=== PATIENT | female | born 1995 | race Caucasian/White ===

== ENCOUNTER 2022-02-08 01:01 | Inpatient (IN) | payer BC, SELFPAY ==
[2022-02-08] VITALS (19 sets, daily range): BP systolic 114–164; BP diastolic 66–103; PULSE 74–101; RESP 15–20; TEMP 36.3–37.2; O2SAT 97–98
[2022-02-08 02:15] LABS: SARS PCR* Negative SARS-CoV-2 (Negative)
--- NOTE | 2022-02-08 05:53 | PM.OBHPLI ---
OB - H&P: HPI Labor/Induction History of Present Illness Date Seen: 02/08/22 Chief Complaint: The patient is a 26 year old 1 para 0 at 37 4/7 weeks gestation by 1st trimester US, who presents with PROM at home. She had clear liquid leak suddenly about an hour prior to admission. Contractions started shortly thereafter. Chief complaint: Maternity : 1 Para: 0 Date of last menstrual period: 05/21/21 Estimated date of delivery: 02/25/22 Gestational age based on last menstrual period: 37 History of Present Dating criteria: based on LMP care: good care Ultrasounds: normal 1st trimester US and normal mid trimester US Medical complications: none Labs Blood type: AB (+) positive Rubella: immune RPR/VDLR: nonreactive GBS status: negative HBsAG: negative Review of Systems Status of ROS: Reports: unobtainable due to medical condition Meds Home Medications and Allergies Home Medications Medication Instructions Recorded Confirmed Type docosahexaenoic acid 200 mg See Rx Instructions PO .once daily 02/08/22 02/08/22 History capsule ( DHA) ferrous sulfate 325 mg (65 mg 325 mg PO .once daily 02/08/22 02/08/22 History iron) tablet,delayed release Allergies Allergy/AdvReac Type Severity Reaction Status Date / Time No Known Drug Allergies Allergy Verified 02/08/22 01:12 OB - H&P: Exam Physical Exam: Vital signs: Temp Resp 98.0 F 16 02/08/22 03:01 02/08/22 03:01 Constitutional: Constitutional: no acute distress Routine Abdominal Exam: Comments: Gravid uterus. Baby cephalic by [place]. Approx [id number] EFW. Detailed Labor and Delivery Exam: Patient Gravid: yes Dilation (cm): 10 Effacement (%): 100 Tachysystole: No Contraction intensity: Moderate Fetus (Single): Station: +2 Amniotic Membrane Status: SROM Amniotic Membrane Fluid Description: Clear OB - Problem Based A/P Additional Plan (1) PROM (premature rupture of membranes): Status: Acute Plan Cervix is complete when I get to the hospital. Ready to start pushing. Patient requests minimal intervention including intermittent auscultation. Will manage per protocol. Delivery/Labor/Induction Plan Plan: expectant management
[2022-02-08] MEDS: OXYTOCIN 10 UNIT/ML INJ IM (06:57)
[2022-02-08] MEDS: LIDOCAINE 1 % PF 30 ML INJECTION (06:57)
--- NOTE | 2022-02-08 07:29 | P.OBPRC_ITS ---
Procedure Delivery date: 02/08/22 Procedure Done: only Events: Premature Rupture of Membrane Intrapartal Events: None Delivery monitor: external FHT (intermittent) Route of delivery: Episiotomy description: None Laceration description: Perineal - 2nd Degree Delivery repair: Vicryl Estimated blood loss (mL): 300 Anesthesia type: None Disposition: floor [place] Infant Infant Gender: Male presentation: vertex Placental Delivery Description: Spontaneous Cord Description: 3 Vessels and Nuchal Cord cord description comment: Nuchal x1 OB Vag Delivery Procedures Additional Procedures Laceration Repair: Yes Procedure Details: Mom progressed spontaneously to complete desiring minimal intervention. She was found to be compete at 0523 and started pushing immediately. She made good, slow progress with pushing. Intermittent heart tones in the 110s-130s. No decels noted. She delivered a liveborn male via the OA position with a 1x nuchal cord at 0634. Baby was brought to warmer after 1 minute because of minimal respiratory effort and poor tone. Mom had moderate bleeding initially and uterine atony so she was given a dose of IM pitocin. Bleeding slowed significantly. She was found to have a 2nd degree midline tear that was repaired with 3-0 Vicryl. Rectal exam after repair was normal. Bleeding was noted to be minimal from the uterus after repair. Mom and infant set up for routine cares. Mom does plan to breastfeed.
[2022-02-08] MEDS: ACETAMINOPHEN 500 MG TABLET 1000 MG PO ×3 (07:37→21:57)
[2022-02-08] MEDS: IBUPROFEN 600 MG TABLET PO ×2 (12:15→19:19)
[2022-02-09 00:30] VITALS: BP 115/77; PULSE 74; RESP 15; TEMP 36.6
[2022-02-09] MEDS: IBUPROFEN 600 MG TABLET PO ×3 (01:19→13:49)
[2022-02-09] MEDS: ACETAMINOPHEN 500 MG TABLET 1000 MG PO ×2 (04:24→10:28)
[2022-02-09 04:27] VITALS: BP 107/76; PULSE 74; RESP 16; TEMP 36.7
--- NOTE | 2022-02-09 08:26 | PM.OBPNVD1 ---
OB - PN:Subj Subjective Date Seen: 02/09/22 Patient comments OB post-: no complaints and pain well controlled infant status: and doing well OB - PN: Obj Exam Physical Exam: Vital signs: Temp Pulse Resp BP Pulse Ox 98.0 F 74 16 107/76 98 02/09/22 04:27 02/09/22 04:27 02/09/22 04:27 02/09/22 04:02/08/22 19:59 Constitutional: Constitutional: no acute distress Routine Respiratory Exam: Respiratory: Present CTA bilaterally Routine Cardiovascular Exam: Cardiovascular: Present RRR; Absent murmur Routine Abdominal Exam: Fundus: Present firm OB - PN: A/P Vaginal Delivery Assessment and Plan (1) Vaginal delivery: Status: Acute Plan day: 1 Plan: routine care Comments: Anticipate d/c tomorrow
[2022-02-09 08:28] VITALS: BP 105/72; PULSE 85; RESP 16; TEMP 36.5; O2SAT 96
[2022-02-09] MEDS: DOCUSATE SODIUM 100 MG CAPSULE PO (09:48)
[2022-02-09 16:16] VITALS: BP 104/62; PULSE 88; RESP 16; TEMP 36.9; O2SAT 96
--- NOTE | 2022-02-17 08:20 | PM.OBDSVD1 ---
DS: Providers Provider Date Seen: 02/09/22 Date of admission: 02/08/22 01:01 Primary care physician: Rio Morgan MD Admitting Clinician: Xiomy Silver DO Attending Physician on discharge: Xiomy Silver DO DS: Diagnosis Discharge Diagnosis (1) Vaginal delivery: Status: Acute Exam Const: Documenting provider has reviewed patient's vital signs: yes Common normals: no apparent distress General appearance: cooperative Resp: Common normals: normal respiratory effort and clear to auscultation bilaterally Auscultation: clear to auscultation bilaterally Cardio: Common normals: regular rate and regular rhythm Rate: regular rate Rhythm: regular rhythm GI: Common normals: soft to palpation Palpation: soft : Uterus: 2/U and firm Skin: Common normals: no rashes or lesions noted General skin exam: no rashes or lesions noted OB - DS: Summary Hospital Course Hospital Course: The patient is a 26 year old G 1 P 1 at 37 weeks gestation that was admitted to the [facility] on 02/08/22 for SHABBIR. She had an uncomplicated vaginal delivery. She delivered a viable male . She is breast feeding. the patient has done well. Peripartum Data delivery method: Vaginal Laceration description: Perineal - 2nd Degree complications: none [place] Gender: Male Infant Discharge Plan: Home Status at Discharge Functional status at discharge: independent ambulation Overall status at discharge: patient is back to baseline Time Spent with Patient Time attestation: Total time spent providing and/or coordinating discharge services: Time spent: Less than 30 minutes Discharge Plan Discharge Disposition: Home, Self-Care Date of Admission: 02/08/22 01:01 Attending Provider on Discharge: Rio Morgan Primary Care Provider: Rio Morgan Condition: Stable Anticipated Discharge Date/Time: 02/09/22 17:51 Discharge Medications: Continued ferrous sulfate 325 mg (65 mg iron) tablet,delayed release (DR/EC) 325 mg PO .once daily Label Comments: TAKE 1 TABLET BY MOUTH ONCE DAILY WITH A MEAL. DHA 200 mg capsule See Rx Instructions PO .once daily Rx Instructions: 1 tablet PO .once daily; Discharge Orders: Discharge Order (Routine); Ordered 02/09/22 Ordered By: Rio Morgan Patient Education: Vaginal Delivery (DC), OB Vaginal/Breast Feeding Activity Level: No Restrictions Discharge Diet: Regular Follow Up Appointments: Rio Morgan MD [Primary Care Provider] - Xiomy Silver DO [Staff Physician] - (6 week visit) Forms: biNu Info Instructions
== END 2022-02-09 18:27 | disposition home or self-care (01) | DRG 560 ==
LOC: OB 01:04
PROVIDERS: Admitting Provider Family Medicine; PCP Surgery; Visit Provider Family Medicine
DX: O42.02 Full-term premature rupture of membranes, onset of labor within 24 hours of rupture (principal); O70.1 Second degree perineal laceration during delivery; Z3A.37 37 weeks gestation of pregnancy; Z37.0 Single live birth
CPT/HCPCS: 84112; 87635; A9270; J2001; J2590